=== PATIENT | female | born 2000 | race Caucasian/White ===

== ENCOUNTER 2021-07-02 09:36 | Emergency (ER) | payer OTHER ==
[~2021-07-02 09:36] MED LIST: BACTRIM DS TAB1 EACH PO; HYDROCODON-ACE1 EAC4 PO; KEFLEX CAP 500500 MG PO; PYRIDIUM100 MG PO; ZOFRAN ODT 4 MG4 MG SL
[2021-07-02 10:32] LABS: HEMOGLOBIN 11.3 gm/dl (12.3-15.3); RED BLOOD COUNT 4.58 M/UL (4.00-5.10); WHITE BLOOD COUNT 9.7 K/UL (4.5-11.0)
[2021-07-02 10:55] LABS: BUN/CREATININE RATIO 17 (0-10)
[2021-07-02] MEDS ORDERED: MACROBID 100 M100 M1 PO (11:02)
== END 2021-07-02 11:12 | disposition home or self-care (01) ==
LOC: ER1 09:36
PROVIDERS: Nurse Practitioner
DX: N39.0 Urinary tract infection, site not specified (principal)
CPT/HCPCS: 80053; 81001; 84703; 85025; 87077; 87086; 87186; 99283; J7030

== ENCOUNTER → 2021-07-13 | Day surgery (SDC) | payer OTHER ==
[~2021-07-13] MED LIST changes: +IBUPROFEN800 MG PO; +MACROBID 100 M100 M1 PO; +PRENATA CHEWAB1 EACH PO
== END | disposition home or self-care (01) ==
LOC: OR 05:31
DX: L05.01 Pilonidal cyst with abscess (principal); N39.0 Urinary tract infection, site not specified; F17.200 Nicotine dependence, unspecified, uncomplicated; Z88.8 Allergy status to other drugs, medicaments and biological substances; Z79.899 Other long term (current) drug therapy; Z82.49 Family history of ischemic heart disease and other diseases of the circulatory system
CPT/HCPCS: 84703; J0690; J1100; J1170; J2250; J2405; J3010; J7120

== ENCOUNTER → 2021-12-25 | Outpatient (CLI) | payer OTHER | LOC: KOH-I 08:00 | DX: R10.84 Generalized abdominal pain (principal) | CPT/HCPCS: 76705 ==